=== PATIENT | female | born 2000 | race African-American/Black ===

== ENCOUNTER 2018-06-29 16:20 | Emergency (ER) | payer BC, OTHER ==
[~2018-06-29] VITALS: Ht 172.7 cm; Wt 77.1 kg
[2018-06-29 17:32] VITALS: BP 109/71
== END 2018-06-29 17:33 | disposition home or self-care (01) ==
LOC: ER 16:20
DX: J02.0 Streptococcal pharyngitis (principal)

== ENCOUNTER 2018-11-16 16:16 | Emergency (ER) | payer OTHER ==
[~2018-11-16] VITALS: Ht 170.2 cm; Wt 89.4 kg
[2018-11-16 17:20] LABS: ABSOLUTE NEUTROPHILS 6.3 thou/uL (1.4-8.2); BASOPHILS 0.4 % (0.0-2.0); EOSINOPHILS 0.3 % (0.0-3.0); HEMOGLOBIN 13.9 gm/dL (12.0-15.0); LYMPHOCYTES 15.3 % (24.0-44.0); MCHC 33.9 g/dL (28.0-37.0); MCV 85.4 fL (80.0-100.0); MONOCYTES 9.5 % (1.0-8.0); PLATELET COUNT 189 thou/uL (150-400); POLYS 74.5 % (36.0-66.0); WBC 8.5 thou/uL (4.0-11.0)
[2018-11-16 17:28] LABS: CALCIUM 9.2 mg/dL (8.5-10.1); CREATININE 0.9 mg/dL (0.6-1.0); POTASSIUM 3.6 mmol/L (3.5-5.1)
[2018-11-16] MEDS ORDERED: CLEOCIN HCL150 MG PO (18:30)
[2018-11-16] MEDS ORDERED: IBUPROFEN 600600 M1 PO (18:30)
[2018-11-16 19:10] VITALS: BP 110/60
== END 2018-11-16 19:10 | disposition home or self-care (01) ==
LOC: ER 16:16
PROVIDERS: Nurse Practitioner Family
DX: J03.90 Acute tonsillitis, unspecified (principal)

== ENCOUNTER 2019-01-21 18:43 | Emergency (ER) | payer OTHER ==
[~2019-01-21] VITALS: Ht 177.8 cm; Wt 86.2 kg
[~2019-01-21 18:43] MED LIST: CLEOCIN HCL150 MG PO; IBUPROFEN 600600 M1 PO
[2019-01-21 19:41] VITALS: BP 110/75
== END 2019-01-21 19:45 | disposition home or self-care (01) ==
LOC: ER 18:43
DX: S09.8XXA Other specified injuries of head, initial encounter (principal); Y04.8XXA Assault by other bodily force, initial encounter; Y93.89 Activity, other specified; Y92.89 Other specified places as the place of occurrence of the external cause; Y99.8 Other external cause status